=== PATIENT | male | born 1980 | race Hispanic/Latino ===

== ENCOUNTER 2020-03-01 08:19 | Emergency (ER) | payer SELFPAY ==
[2020-03-01] MEDS ORDERED: KETOROLAC 30 MG/ML INJ ONE (08:44)
--- NOTE | 2020-03-01 08:50 | ER ---
Nurse's Notes [facility] Name: Edwin Cisneros Age: 39 yrs Sex: Male : 1980 Arrival Date: 03/01/2020 Time: 08:21 Bed 5 Private MD: Diagnosis: Sciatica, left side Presentation: 03/01 08:33 Chief complaint: Patient states: low back pain since 0200 today, slipped on wet floor iw yesterday but did not hit ground. Coronavirus screen: Proceed with normal triage. Patient denies a cough. Patient denies shortness of breath or difficulty breathing. Patient denies measured and/or subjective temperature greater than 100.4F prior to today's visit. Patient denies travel on a cruise ship or to a country the [facility] currently lists as an affected area. Patient denies contact with known and/or suspected case of COVID-19. Ebola Screen: Patient negative for fever greater than or equal to 101.5 degrees Fahrenheit, and additional compatible Ebola Virus Disease symptoms Patient denies exposure to infectious person. Patient denies travel to an Ebola-affected area in the 21 days before illness onset. No symptoms or risks identified at this time. Initial Sepsis Screen: Does the patient meet any 2 criteria? No. Patient's initial sepsis screen is negative. Does the patient have a suspected source of infection? No. Patient's initial sepsis screen is negative. Risk Assessment: Do you want to hurt yourself or someone else? Patient reports no desire to harm self or others. Onset of symptoms was March 01, 2020. 08:33 Acuity: WILVER 4 iw 08:33 Method Of Arrival: Ambulatory iw Historical: - Allergies: 08:35 No Known Allergies; iw - Home Meds: 08:35 None [Active]; iw - PMHx: 08:35 None; iw - PSHx: 08:35 None; iw - Immunization history:: Adult Immunizations. - Social history:: Smoking status: Patient reports the use of cigarette tobacco products, denies chronic smoking, but will smoke occasionally. Screenin:14 Abuse screen: Denies threats or abuse. Denies injuries from another. Nutritional ph screening: No deficits noted. Tuberculosis screening: Fall Risk None identified. Assessment: 09:00 General: Appears in no apparent distress. comfortable, well groomed, Behavior is calm, ph cooperative, appropriate for age. Pain: Complains of pain in left low back Pain radiates to left leg. Neuro: Level of Consciousness is awake, alert, obeys commands, Oriented to person, place, time, situation. Cardiovascular: Capillary refill < 3 seconds in bilateral fingers Patient's skin is warm and dry. Respiratory: No deficits noted. Musculoskeletal: Circulation, motion, and sensation intact. Range of motion: intact in all extremities. Vital Signs: 08:33 BP 146 / 96; Pulse 82; Resp 16; Temp 97.8; Pulse Ox 99% on R/A; Weight 108.86 kg; iw Height 5 ft. 7 in. (170.18 cm); Pain 8/10; 09:15 BP 137 / 86; Pulse 71; Resp 18; Temp 98.0; Pulse Ox 99% on R/A; ph 08:33 Body Mass Index 37.59 (108.86 kg, 170.18 cm) iw ED Course: 08:21 Patient arrived in ED. as 08:25 Padma Da Silva FNP-C is [facility]. kb 08:25 Nirmal Van MD is Attending Physician. kb 08:33 Cyndee Ballard, XENIA is Primary Nurse. iw 08:34 Triage completed. iw 08:35 Arm band placed on. iw 08:44 Urine collected: clean catch specimen, clear. dh3 09:14 Patient has correct armband on for positive identification. Bed in low position. Call ph light in reach. Side rails up X 1. 09:14 No provider procedures requiring assistance completed. Patient did not have IV access ph during this emergency room visit. Administered Medications: 08:40 Drug: TORadol 30 mg Route: IM; Site: left deltoid; iw Outcome: 08:49 Discharge ordered by . kb 09:14 Discharged to home ambulatory. ph 09:14 Condition: good 09:14 Condition: good 09:14 Discharge instructions given to patient, Instructed on discharge instructions, follow up and referral plans. no drinking with medication, Demonstrated understanding of instructions, follow-up care, medications, Prescriptions given X 2. 09:15 Patient left the ED. ph Signatures: Padma Da Silva FNP-C FNP-Melba Steen as Cyndee Ballard RN RN Olga Ladd RN RN Candace Carney dh3
--- NOTE | 2020-03-01 08:50 | EDPHYS ---
Physician Documentation [facility] Name: Edwin Cisneros Age: 39 yrs Sex: Male : 1980 Arrival Date: 03/01/2020 Time: 08:21 Bed 5 Private MD: ED Physician Nirmal Van HPI: 03/01 08:32 This 39 yrs old Male presents to ER via Unassigned with complaints of Low Back kb Pain. 08:32 The patient presents with pain that is acute, with no known mechanism of injury, and kb tenderness. The symptoms are located in the left low back. The pain radiates to the left leg. The problem was sustained without known cause. Onset: The symptoms/episode began/occurred this morning, at 02:00. Modifying factors: The patient symptoms are alleviated by nothing, the patient symptoms are aggravated by any movement. Associated signs and symptoms: Pertinent positives: none. Severity of symptoms: At their worst the symptoms were moderate, in the emergency department the symptoms are unchanged. The patient has not experienced similar symptoms in the past. The patient has not recently seen a physician. Pt reports left low back pain that radiates down left leg intermittently. States pain started at 0200 when he woke up. Denies injury or trauma. States he did slip getting out of the shower on Friday, but didn't fall. Denies incontinence, retention, fever. Ambulates with steady gait. No vertebral tenderness, no CVA tenderness. Historical: - Allergies: 08:35 No Known Allergies; iw - Home Meds: 08:35 None [Active]; iw - PMHx: 08:35 None; iw - PSHx: 08:35 None; iw - Immunization history:: Adult Immunizations. - Social history:: Smoking status: Patient reports the use of cigarette tobacco products, denies chronic smoking, but will smoke occasionally. ROS: 08:31 Constitutional: Negative for fever, chills, and weight loss, Cardiovascular: Negative kb for chest pain, palpitations, and edema, Respiratory: Negative for shortness of breath, cough, wheezing, and pleuritic chest pain, Abdomen/GI: Negative for abdominal pain, nausea, vomiting, diarrhea, and constipation, : Negative for injury, bleeding, discharge, and swelling, MS/Extremity: Negative for injury and deformity, Skin: Negative for injury, rash, and discoloration, Neuro: Negative for headache, weakness, numbness, tingling, and seizure. 08:31 Back: Positive for pain at rest, pain with movement, radiated pain, of the left low back, Negative for injury or acute deformity, decreased range of motion. Exam: 08:31 Constitutional: This is a well developed, well nourished patient who is awake, alert, kb and in no acute distress. Head/Face: Normocephalic, atraumatic. Chest/axilla: Normal chest wall appearance and motion. Nontender with no deformity. No lesions are appreciated. Cardiovascular: Regular rate and rhythm with a normal S1 and S2. No gallops, murmurs, or rubs. Normal PMI, no JVD. No pulse deficits. Respiratory: Lungs have equal breath sounds bilaterally, clear to auscultation and percussion. No rales, rhonchi or wheezes noted. No increased work of breathing, no retractions or nasal flaring. Abdomen/GI: Soft, non-tender, with normal bowel sounds. No distension or tympany. No guarding or rebound. No evidence of tenderness throughout. Skin: Warm, dry with normal turgor. Normal color with no rashes, no lesions, and no evidence of cellulitis. MS/ Extremity: Pulses equal, no cyanosis. Neurovascular intact. Full, normal range of motion. Neuro: Awake and alert, GCS 15, oriented to person, place, time, and situation. Cranial nerves II-XII grossly intact. Motor strength 5/5 in all extremities. Sensory grossly intact. Cerebellar exam normal. Normal gait. 08:31 Back: pain, that is moderate, of the left low back, ROM is painful, normal spinal alignment noted, CVA tenderness, is absent. Vital Signs: 08:33 BP 146 / 96; Pulse 82; Resp 16; Temp 97.8; Pulse Ox 99% on R/A; Weight 108.86 kg; iw Height 5 ft. 7 in. (170.18 cm); Pain 8/10; 09:15 BP 137 / 86; Pulse 71; Resp 18; Temp 98.0; Pulse Ox 99% on R/A; ph 08:33 Body Mass Index 37.59 (108.86 kg, 170.18 cm) iw MDM: 08:25 Patient medically screened. kb 08:31 Data reviewed: vital signs, nurses notes. Data interpreted: Pulse oximetry: on room air kb is 100 %. Interpretation: normal. Counseling: I had a detailed discussion with the patient and/or guardian regarding: the historical points, exam findings, and any diagnostic results supporting the discharge/admit diagnosis, lab results, the need for outpatient follow up, a family practitioner, to return to the emergency department if symptoms worsen or persist or if there are any questions or concerns that arise at home. 03/01 08:47 Order name: Urine Dipstick--Ancillary (enter results) bd 03/01 08:30 Order name: Urine Dipstick-Ancillary (obtain specimen); Complete Time: 08:47 kb Administered Medications: 08:40 Drug: TORadol 30 mg Route: IM; Site: left deltoid; iw Disposition: 10:22 Co-signature as Attending Physician, Nirmal Van MD I agree with the assessment and kdr plan of care. Disposition: 03/01/20 08:49 Discharged to Home. Impression: Sciatica, left side. - Condition is Stable. - Discharge Instructions: Sciatica, [id number], Back Exercises, Qncg-[id number]. - Prescriptions for Cyclobenzaprine 10 mg Oral Tablet - take 1 tablet by ORAL route every 8 hours As needed; 21 tablet. Diclofenac Sodium 75 mg Oral Tablet, Delayed Release (E.C.) - take 1 tablet by ORAL route 2 times per day As needed; 30 tablet. - Work release form, Medication Reconciliation Form, Thank You Letter, Antibiotic Education, Prescription Opioid Use form. - Follow up: Emergency Department; When: As needed; Reason: Worsening of condition. Follow up: Private Physician; When: 2 - 3 days; Reason: Recheck today's complaints, Continuance of care, Re-evaluation by your physician. Signatures: Dispatcher [employer] EDND Padma Da Silva, SARAH LOPEZ-Nirmal Roa MD MD kdr Cyndee Ballard RN RN iw Olga Ladd RN RN ph Corrections: (The following items were deleted from the chart) 09:15 08:49 03/01/2020 08:49 Discharged to Home. Impression: Sciatica, left side. Condition ph is Stable. Discharge Instructions: Sciatica, [id number], Back Exercises, Ekre-yp-Hsok. Prescriptions for Cyclobenzaprine 10 mg Oral Tablet - take 1 tablet by ORAL route every 8 hours As needed; 21 tablet, Diclofenac Sodium 75 mg Oral Tablet, Delayed Release (E.C.) - take 1 tablet by ORAL route 2 times per day As needed; 30 tablet. and Forms are Medication Reconciliation Form, Thank You Letter, Antibiotic Education, Prescription Opioid Use. Follow up: Emergency Department; When: As needed; Reason: Worsening of condition. Follow up: Private Physician; When: 2 - 3 days; Reason: Recheck today's complaints, Continuance of care, Re-evaluation by your physician. kb
[2020-03-01 09:18] LABS: Urine Blood 2+ (NEG); Urine Glucose NEGATIVE (NEG); Urine Protein 2+ (NEG); Urine Specific Gravity >1.030 (1.005-1.030); Urine pH 6.5 (5.0-7.0)
[2020-03-01 11:08] VITALS: O2SAT 99
[2020-03-01 11:09] VITALS: BP 137/86; TEMP 98
== END 2020-03-01 09:15 | disposition home or self-care (01) ==
LOC: ER 08:19
DX: M54.32 Sciatica, left side (principal); Z72.0 Tobacco use
CPT/HCPCS: 81003; 96372; 99283

== ENCOUNTER 2020-03-07 09:39 | Emergency (ER) | payer SELFPAY ==
--- NOTE | 2020-03-13 13:07 | EDPHYS ---
Physician Documentation [facility] Name: Edwin Cisneros Age: 39 yrs Sex: Male : 1980 Arrival Date: 03/07/2020 Time: 09:40 Bed 20 Private MD: ED Physician Andres Breen HPI: 03/07 10:04 This 39 yrs old Male presents to ER via Unassigned with complaints of Medical rn Clearance. 10:04 Reports seen on 03/01, has form that states ok to return to work after 03/06, but work rn requesting new sheet that states no restrictions, no active complaints, his back pain has resolved, doesn't have physician here. . Severity of symptoms: At their worst the symptoms were moderate in the emergency department the symptoms have resolved. The patient has not experienced similar symptoms in the past. The patient has been recently seen at the [facility]. - Family history:: not pertinent. - Hospitalizations: : No recent hospitalization is reported. ROS: 10:04 Constitutional: Negative for fever, chills, and weight loss, Cardiovascular: Negative rn for chest pain, palpitations, and edema, Respiratory: Negative for shortness of breath, cough, wheezing, and pleuritic chest pain, Abdomen/GI: Negative for abdominal pain, nausea, vomiting, diarrhea, and constipation, Back: Negative for injury and pain, MS/Extremity: Negative for injury and deformity, Skin: Negative for injury, rash, and discoloration, Neuro: Negative for headache, weakness, numbness, tingling, and seizure. Exam: 10:04 Constitutional: This is a well developed, well nourished patient who is awake, alert, rn and in no acute distress. Ambulatory to room without assistance. Back: Full range of motion. Bends down easily to touch toes Neuro: Awake and alert, GCS 15, oriented to person, place, time, and situation. Motor strength 5/5 in all extremities. Cerebellar exam normal. Normal gait. MDM: 09:42 Patient medically screened. rn 10:04 Differential Diagnosis back strain/resolved. Data reviewed: vital signs, nurses notes, rn old medical records, and as a result, I will discharge patient. Counseling: I had a detailed discussion with the patient and/or guardian regarding: the historical points, exam findings, and any diagnostic results supporting the discharge/admit diagnosis, the need for outpatient follow up, to return to the emergency department if symptoms worsen or persist or if there are any questions or concerns that arise at home. ED course: Spoke with his boss, boss now states does not need new form, current form will suffice, pt medically screened. . Administered Medications: No medications were administered Disposition: 03/07/20 10:07 Discharged to Home as Medical Screen. Impression: Strain of muscle, fascia and tendon of lower back. - Condition is Stable. - Discharge Instructions: Back Pain, Adult, Muscle Strain. - Medication Reconciliation Form, Thank You Letter, Antibiotic Education, Prescription Opioid Use form. - Follow up: Private Physician; When: As needed; Reason: Recheck today's complaints, Re-evaluation by your physician. - Problem is new. - Symptoms are resolved. Signatures: Andres Breen MD MD rn Barber, Rebecca, RN RN rb1 Corrections: (The following items were deleted from the chart) 10:09 10:07 03/07/2020 10:07 Discharged to Home as Medical Screen. Impression: Strain of rb1 muscle, fascia and tendon of lower back. Condition is Stable. Forms are Medication Reconciliation Form, Thank You Letter, Antibiotic Education, Prescription Opioid Use. Follow up: Private Physician; When: As needed; Reason: Recheck today's complaints, Re-evaluation by your physician. Problem is new. Symptoms are resolved. rn
--- NOTE | 2020-03-13 13:07 | ER ---
Nurse's Notes [facility] Name: Edwin Cisneros Age: 39 yrs Sex: Male : 1980 Arrival Date: 03/07/2020 Time: 09:40 Bed 20 Private MD: Diagnosis: Strain of muscle, fascia and tendon of lower back - Family history:: not pertinent. - Hospitalizations: : No recent hospitalization is reported. ED Course: 03/07 09:40 Patient arrived in ED. ag5 09:42 Andres Breen MD is Attending Physician. rn 10:04 Virginia Andersen, XENIA is Primary Nurse. rb1 Administered Medications: No medications were administered Outcome: 10:07 Discharge ordered by . rn 10:08 Medical screen evaluation completed per provider. Patient declined treatment. rb1 10:09 Patient left the ED. rb1 Signatures: Andres Breen MD MD rn Barber, Rebecca, RN RN rb1 Kamari Davenport ag5
== END 2020-03-07 10:09 | disposition home or self-care (01) ==
LOC: ER 09:39
DX: Z00.00 Encounter for general adult medical examination without abnormal findings (principal)

== ENCOUNTER 2021-01-16 07:00 | Emergency (ER) | payer SELFPAY ==
[2021-01-16] MEDS ORDERED: PANTOPRAZOLE 40 MG INJ ONE (10:38)
[2021-01-16 10:39] LABS: Absolute Lymphocytes (CBC) 1.7 K/uL (0.7-4.9); Basophils % 0.7 % (0-1.3); Hematocrit 41.5 % (39.6-49.0); Lymphocytes % 25.4 % (15.3-44.8); MPV 9.2 fL (7.6-11.3); RBC Red Blood Cell Count 4.82 M/uL (4.33-5.43)
--- NOTE | 2021-01-16 10:52 | RAD REPORT ---
EXAM DESCRIPTION: CT - Abdomen Pelvis W Contrast - 01/16/2021 10:33 am CLINICAL HISTORY: Abdominal pain COMPARISON: none. TECHNIQUE: Computed axial tomography of the abdomen pelvis was obtained. 100 cc Isovue-300 was admin istered intravenously. Oral contrast was not requested which limits evaluation of bowel. All CT scans are performed using dose optimization technique as appropriate and may include automated exposure control or mA/KV adjustment according to patient size. FINDINGS: Fatty liver Spleen, pancreas, adrenal and kidneys appear unremarkable. There is no evidence of diverticulitis. Appendectomy Small right inguinal hernia contains fat IMPRESSION: No acute abnormality is displayed.
[2021-01-16 10:54] LABS: ALT/SGPT 35 U/L (12-78); AST/SGOT 22 U/L (15-37); Albumin 3.9 g/dL (3.4-5.0); Alkaline Phosphatase 62 U/L (45-117); BUN Blood Urea Nitrogen 23 mg/dL (7-18); Bicarbonate 29 mmol/L (21-32); Bilirubin Direct 0.1 mg/dL (0-0.2); Bilirubin Total 0.6 mg/dL (0.2-1.0); Glucose Level 91 mg/dL (74-106); Lipase 117 U/L (73-393); Potassium 3.9 mmol/L (3.5-5.1); Protein, Total 7.5 g/dL (6.4-8.2); Sodium Level 142 mmol/L (136-145)
--- NOTE | 2021-01-16 11:00 | ER ---
Nurse's Notes [facility] Name: Edwin Cisneros Age: 40 yrs Sex: Male : 1980 Arrival Date: 01/16/2021 Time: 07:02 Bed 14 Private MD: Diagnosis: Upper abdominal pain, unspecified Presentation: 01/16 07:20 Chief complaint: Patient states: he is having abdominal pain which started last night bb but has been dealing with this for a couple of months now is taking pantoprazole. Coronavirus screen: At this time, the client does not indicate any symptoms associated with coronavirus-19. Ebola Screen: No symptoms or risks identified at this time. Initial Sepsis Screen: Does the patient meet any 2 criteria? No. Patient's initial sepsis screen is negative. Does the patient have a suspected source of infection? No. Patient's initial sepsis screen is negative. Risk Assessment: Do you want to hurt yourself or someone else? Patient reports no desire to harm self or others. Onset of symptoms was January 15, 2021. 07:20 Method Of Arrival: Ambulatory bb 07:20 Acuity: WILVER 3 bb Triage Assessment: 07:23 General: Appears in no apparent distress. Behavior is calm, cooperative. Pain: bb Complains of pain in abdomen Pain currently is 8 out of 10 on a pain scale. 07:23 GI: Reports upper abdominal pain, Patient currently denies diarrhea, vomiting. bb Historical: - Allergies: 07:23 No Known Allergies; bb - Home Meds: 07:23 pantoprazole 40 mg oral TbEC 1 tab once daily [Active]; bb - PMHx: 07:23 gastritis; bb - PSHx: 07:23 Appendectomy; bb - Immunization history:: Adult Immunizations up to date. - Social history:: Smoking status: Patient denies any tobacco usage or history of. Patient uses alcohol, occasionally. Patient uses street drugs, marijuana. Screenin:21 Abuse screen: Denies threats or abuse. Nutritional screening: No deficits noted. ll1 Tuberculosis screening: No symptoms or risk factors identified. Fall Risk None identified. IV access (20 points). Total Caro Fall Scale indicates No Risk (0-24 pts). Assessment: 09:50 General: Appears in no apparent distress. Behavior is calm, cooperative, appropriate ll1 for age. Pain: Complains of pain in abdomen. Neuro: No deficits noted. Cardiovascular: No deficits noted. GI: Abdomen is round Bowel sounds present X 4 quads. Abd is soft and non tender X 4 quads. Reports upper abdominal pain, indigestion, nausea. Vital Signs: 07:20 BP 123 / 103; Pulse 63; Resp 18 S; Temp 98; Pulse Ox 99% on R/A; Weight 114.76 kg (R); bb Height 5 ft. 7 in. (170.18 cm) (R); Pain 8/10; 11:23 BP 123 / 76; Pulse 73; Resp 17; Pulse Ox 99% ; ll1 07:20 Body Mass Index 39.62 (114.76 kg, 170.18 cm) bb ED Course: 07:02 Patient arrived in ED. es 07:22 Triage completed. bb 07:23 Arm band placed on Patient placed in waiting room, Patient notified of wait time. bb 09:54 Padma Da Silva FNP-C is PHCP. kb 09:54 Andres Breen MD is Attending Physician. kb 09:55 Carmen Merritt, XENIA is Primary Nurse. ll1 10:00 Bed in low position. Call light in reach. Side rails up X 1. Cardiac monitoring not ll1 applicable on this patient. 10:00 Inserted saline lock: 20 gauge in right antecubital area, using aseptic technique. ll1 Blood collected. 10:32 CT Abd/Pelvis - IV Contrast Only In Process Unspecified. EDMS 11:20 IV discontinued, intact, bleeding controlled, No redness/swelling at site. Pressure ll1 dressing applied. 11:22 No provider procedures requiring assistance completed. ll1 Administered Medications: 10:28 Drug: ProTONIX 40 mg Route: IVP; Site: right antecubital; ll1 11:25 Follow up: Response: No adverse reaction ll1 11:09 Drug: GI Cocktail without - (Maalox Suspension 30 ml, Lidocaine Liquid 2 % 15 ll1 ml) Route: PO; 11:25 Follow up: Response: No adverse reaction ll1 Outcome: 10:59 Discharge ordered by . kb 11:22 Discharged to home ambulatory. ll1 11:22 Condition: stable 11:22 Discharge instructions given to patient, Instructed on discharge instructions, follow up and referral plans. Demonstrated understanding of instructions, follow-up care. 11:24 Patient left the ED. ll1 Signatures: Dispatcher [employer] Padma Stockton, LIC JESSICA-Gill Marin Brenda RN RN Carmen Damon RN RN ll1
--- NOTE | 2021-01-16 11:00 | EDPHYS ---
Physician Documentation [facility] Name: Edwin Cisneros Age: 40 yrs Sex: Male : 1980 Arrival Date: 01/16/2021 Time: 07:02 Bed 14 Private MD: ED Physician Andres Breen HPI: 01/16 10:57 This 40 yrs old Male presents to ER via Ambulatory with complaints of kb Abdominal Pain. 10:57 The patient presents with abdominal pain in the epigastric area. Onset: The kb symptoms/episode began/occurred 3 month(s) ago. The symptoms do not radiate. Associated signs and symptoms: none. The symptoms are described as intermittent. Modifying factors: The symptoms are alleviated by nothing, the symptoms are aggravated by nothing. Severity of pain: At its worst the pain was moderate in the emergency department the pain is unchanged. The patient has experienced similar episodes in the past. The patient has been recently seen by a physician:. Pt reports he has had upper abd pain and bloating most days for the last few months. States he saw his PCP (Karlie) a couple of weeks ago and was given a prescription for protonix which has helped, but the pain woke him up in the middle of the night last night prompting him to come in today.. Historical: - Allergies: 07:23 No Known Allergies; bb - Home Meds: 07:23 pantoprazole 40 mg oral TbEC 1 tab once daily [Active]; bb - PMHx: 07:23 gastritis; bb - PSHx: 07:23 Appendectomy; bb - Immunization history:: Adult Immunizations up to date. - Social history:: Smoking status: Patient denies any tobacco usage or history of. Patient uses alcohol, occasionally. Patient uses street drugs, marijuana. ROS: 10:57 Constitutional: Negative for fever, chills, and weight loss, Cardiovascular: Negative kb for chest pain, palpitations, and edema, Respiratory: Negative for shortness of breath, cough, wheezing, and pleuritic chest pain, MS/Extremity: Negative for injury and deformity, Skin: Negative for injury, rash, and discoloration, Neuro: Negative for headache, weakness, numbness, tingling, and seizure. 10:57 Abdomen/GI: Positive for abdominal pain, Negative for nausea, vomiting, and diarrhea. Exam: 10:57 Constitutional: This is a well developed, well nourished patient who is awake, alert, kb and in no acute distress. Head/Face: Normocephalic, atraumatic. Cardiovascular: Regular rate and rhythm with a normal S1 and S2. No gallops, murmurs, or rubs. No pulse deficits. Respiratory: Respirations even and unlabored. No increased work of breathing, no retractions or nasal flaring. Abdomen/GI: Soft, non-tender. No distention Skin: Warm, dry with normal turgor. Normal color. MS/ Extremity: Pulses equal, no cyanosis. Neurovascular intact. Full, normal range of motion. Neuro: Awake and alert, GCS 15, oriented to person, place, time, and situation. Moves all extremities. Normal gait. Vital Signs: 07:20 BP 123 / 103; Pulse 63; Resp 18 S; Temp 98; Pulse Ox 99% on R/A; Weight 114.76 kg (R); bb Height 5 ft. 7 in. (170.18 cm) (R); Pain 8/10; 11:23 BP 123 / 76; Pulse 73; Resp 17; Pulse Ox 99% ; ll1 07:20 Body Mass Index 39.62 (114.76 kg, 170.18 cm) bb MDM: 09:54 Patient medically screened. kb 10:56 Data reviewed: vital signs, nurses notes. Data interpreted: Pulse oximetry: on room air kb is 99 %. Interpretation: normal. Counseling: I had a detailed discussion with the patient and/or guardian regarding: the historical points, exam findings, and any diagnostic results supporting the discharge/admit diagnosis, lab results, radiology results, the need for outpatient follow up, a sales and merchandising representative, to return to the emergency department if symptoms worsen or persist or if there are any questions or concerns that arise at home. 01/16 10:01 Order name: Basic Metabolic Panel kb 01/16 10:01 Order name: CBC with Diff; Complete Time: 10:46 kb 01/16 10:01 Order name: Hepatic Function kb 01/16 10:01 Order name: Lipase; Complete Time: 10:56 kb 01/16 10:02 Order name: Basic Metabolic Panel; Complete Time: 10:56 EDMS 01/16 10:02 Order name: Liver (Hepatic) Function; Complete Time: 10:56 EDMS 01/16 10:01 Order name: IV Saline Lock; Complete Time: 10:23 kb 01/16 10:01 Order name: Labs collected and sent; Complete Time: 10:23 kb 01/16 10:01 Order name: CT Abd/Pelvis - IV Contrast Only; Complete Time: 10:56 kb Administered Medications: 10:28 Drug: ProTONIX 40 mg Route: IVP; Site: right antecubital; ll1 11:25 Follow up: Response: No adverse reaction ll1 11:09 Drug: GI Cocktail without - (Maalox Suspension 30 ml, Lidocaine Liquid 2 % 15 ll1 ml) Route: PO; 11:25 Follow up: Response: No adverse reaction ll1 Disposition: 15:11 Co-signature as Attending Physician, Andres Breen MD. rn Disposition: 01/16/21 10:59 Discharged to Home. Impression: Upper abdominal pain, unspecified. - Condition is Stable. - Discharge Instructions: Abdominal Pain, Adult, [id number]. - Medication Reconciliation Form, Thank You Letter, Antibiotic Education, Prescription Opioid Use, Work release form form. - Follow up: Emergency Department; When: As needed; Reason: Worsening of condition. Follow up: Private Physician; When: 2 - 3 days; Reason: Recheck today's complaints, Continuance of care, Re-evaluation by your physician. Signatures: Dispatcher [employer] [facility] Padma Da Silva, ENDOSCOPY REGISTERED NURSE-C ENDOSCOPY REGISTERED NURSE-CkAntonietta Phipps, RN Andres Martinez MD MD rn Lewis, Lynsay, RN RN ll1 Corrections: (The following items were deleted from the chart) 11:24 10:59 01/16/2021 10:59 Discharged to Home. Impression: Upper abdominal pain, ll1 unspecified. Condition is Stable. Forms are Medication Reconciliation Form, Thank You Letter, Antibiotic Education, Prescription Opioid Use. Follow up: Emergency Department; When: As needed; Reason: Worsening of condition. Follow up: Private Physician; When: 2 - 3 days; Reason: Recheck today's complaints, Continuance of care, Re-evaluation by your physician. kb
[2021-01-16] MEDS ORDERED: MAGNES/ALUMIN/SIMET 30ML UCUP ONE (11:20)
[2021-01-16] MEDS ORDERED: LIDOCAINE VISCOUS 2% SOLN 15 ML UDC ONE (11:20)
== END 2021-01-16 11:24 | disposition home or self-care (01) ==
LOC: ER 07:00
DX: R10.13 Epigastric pain (principal); K29.70 Gastritis, unspecified, without bleeding
CPT/HCPCS: 36415; 74177; 80048; 80076; 82565; 83690; 85025; 96374; 99284; C9113; Q9967

== ENCOUNTER 2021-09-24 09:28 | Emergency (ER) | payer SELFPAY ==
--- NOTE | 2021-09-24 10:50 | RAD REPORT ---
EXAM DESCRIPTION: CT - Head Brain Wo Cont - 09/24/2021 10:23 am CLINICAL HISTORY: Headache COMPARISON: None. TECHNIQUE: Computed axial tomography of the head was obtained. IV contrast was not requested. All CT scans are performed using dose optimization technique as appropriate and may include automated exposure control or mA/KV adjustment according to patient size. FINDINGS: An intracranial bleed is not seen . The ventricles are normal in caliber. No extra-axial fluid collection is noted. Fluid within the sinuses/ mastoids is not seen. IMPRESSION: No acute intracranial abnormality is seen. If patient's symptoms persist MRI of the bra in would be recommended.
[2021-09-24 10:52] LABS: Absolute Lymphocytes (CBC) 1.9 K/uL (0.7-4.9); Basophils % 0.6 % (0-1.3); Hematocrit 44.7 % (39.6-49.0); Lymphocytes % 28.2 % (15.3-44.8); MPV 8.6 fL (7.6-11.3); RBC Red Blood Cell Count 5.25 M/uL (4.33-5.43)
[2021-09-24] MEDS ORDERED: METOCLOPRAMIDE 10 MG/2mL INJ ONE (10:58)
[2021-09-24] MEDS ORDERED: KETOROLAC 30 MG/ML INJ ONE (10:58)
[2021-09-24] MEDS ORDERED: DIPHENHYDRAMINE 50 MG/ML VIAL ONE (10:58)
[2021-09-24] MEDS ORDERED: NA CHLORIDE 0.9% 500 ML ONE (10:58)
[2021-09-24 11:10] LABS: BUN Blood Urea Nitrogen 18 mg/dL (7-18); Bicarbonate 28 mmol/L (21-32); Glucose Level 96 mg/dL (74-106); Sodium Level 140 mmol/L (136-145)
[2021-09-24 11:25] LABS: SARS-COV-2 RT PCR NEGATIVE (NEGATIVE)
--- NOTE | 2021-09-24 12:50 | RAD REPORT ---
EXAM DESCRIPTION: CT - Head angio - 09/24/2021 12:38 pm CLINICAL HISTORY: HEADACHE Headache, drowsiness COMPARISON: Head Brain Wo Cont dated 09/24/2021 TECHNIQUE: CT angiography of the head was performed with MIPs. All CT scans are performed using dose optimization technique as appropriate and may include automated exposure control or mA/KV adjustment according to patient size. FINDINGS: No evidence of aneurysm is detected. No flow-limiting stenosis or vascular malformation id entified. Antegrade flow is seen in the vertebral arteries. The vertebral arteries are codominant. The visualized dural venous sinuses are patent. IMPRESSION: No significant flow abnormality is detected.
--- NOTE | 2021-09-24 13:24 | ER ---
Nurse's Notes [facility] Name: Edwin Cisneros Age: 41 yrs Sex: Male : 1980 Arrival Date: 09/24/2021 Time: 09:30 Bed 4 Private MD: Diagnosis: Headache Presentation: 09/24 09:33 Chief complaint: Patient states: headache that began x 2 days that began worse ss yesterday. Coronavirus screen: Client denies travel out of the [place] in the last 14 days. Ebola Screen: Patient denies exposure to infectious person. Patient denies travel to an Ebola-affected area in the 21 days before illness onset. Initial Sepsis Screen: Does the patient meet any 2 criteria? No. Patient's initial sepsis screen is negative. Does the patient have a suspected source of infection? No. Patient's initial sepsis screen is negative. Risk Assessment: Do you want to hurt yourself or someone else? Patient reports no desire to harm self or others. Onset of symptoms was September 22, 2021. 09:33 Method Of Arrival: Ambulatory ss 09:33 Acuity: WILVER 3 ss Historical: - Allergies: 09:35 No Known Allergies; ss - Home Meds: 09:35 None [Active]; ss - PMHx: 09:35 gastritis; ss - PSHx: 09:35 None; ss - Immunization history:: Client reports receiving the 2nd dose of the Covid vaccine. - Social history:: Smoking status: Patient denies any tobacco usage or history of. Screenin:12 Abuse screen: Denies threats or abuse. Nutritional screening: No deficits noted. vg1 Tuberculosis screening: No symptoms or risk factors identified. Fall Risk No fall in past 12 months (0 pts). No secondary diagnosis (0 pts). IV access (20 points). Ambulatory Aid- None/Bed Rest/Nurse Assist (0 pts). Gait- Normal/Bed Rest/Wheelchair (0 pts) Mental Status- Oriented to own ability (0 pts). Total Caro Fall Scale indicates No Risk (0-24 pts). Assessment: 10:11 General: Appears in no apparent distress. uncomfortable, Behavior is calm, cooperative. vg1 Pain: Complains of pain in head Pain currently is 7 out of 10 on a pain scale. Pain began 2-3 days ago. Also complains of nausea. Neuro: Level of Consciousness is awake, alert, obeys commands, Oriented to person, place, time, situation, Reports blurred vision dizziness, headache. Cardiovascular: Patient's skin is warm and dry. Respiratory: Airway is patent Respiratory effort is even, unlabored. GI: Reports nausea. : No signs and/or symptoms were reported regarding the genitourinary system. EENT: No signs and/or symptoms were reported regarding the EENT system. Derm: Skin is intact, is healthy with good turgor. Musculoskeletal: Circulation, motion, and sensation intact. 11:06 Reassessment: Patient appears in no apparent distress at this time. No changes from vg1 previously documented assessment. Patient and/or family updated on plan of care and expected duration. Pain level reassessed. Patient is alert, oriented x 3, equal unlabored respirations, skin warm/dry/pink. 12:22 Reassessment: Patient appears in no apparent distress at this time. Patient and/or vg1 family updated on plan of care and expected duration. Pain level reassessed. Patient is alert, oriented x 3, equal unlabored respirations, skin warm/dry/pink. Rated headache 5/10 Patient states feeling better. 13:30 Reassessment: Patient appears in no apparent distress at this time. Patient and/or vg1 family updated on plan of care and expected duration. Pain level reassessed. Patient is alert, oriented x 3, equal unlabored respirations, skin warm/dry/pink. Patient states feeling better. Vital Signs: 09:33 BP 143 / 105; Pulse 66; Resp 18; Temp 97.2(TE); Pulse Ox 100% on R/A; Weight 115.67 kg; Height 5 ft. 7 in. (170.18 cm); Pain 7/10; 10:12 BP 140 / 95; Pulse 76; Resp 15; Pulse Ox 100% ; vg1 11:07 BP 136 / 82; Pulse 60; Resp 16; Pulse Ox 100% ; vg1 13:30 BP 134 / 72; Pulse 64; Resp 16; Pulse Ox 100% ; vg1 09:33 Body Mass Index 39.94 (115.67 kg, 170.18 cm) ED Course: 09:30 Patient arrived in ED. ds1 09:35 Triage completed. ss 09:35 Arm band placed on right wrist. ss 09:46 Mickail, Marek, PA is PHCP. [facility] 09:46 Andres Breen MD is Attending Physician. m 10:05 Laura Colón, RN is Primary Nurse. vg1 10:12 Patient has correct armband on for positive identification. Bed in low position. Call vg1 light in reach. Side rails up X 1. 10:12 No provider procedures requiring assistance completed. vg1 10:23 CT Head Brain wo Cont In Process Unspecified. EDMS 10:43 Warm blanket given. Pulse ox on. NIBP on. mh5 10:43 Strep Sent. 5 10:43 COVID swab sent to lab. Flu and/or RSV swab sent to lab. Strep swab sent to lab. 5 10:47 Initial lab(s) drawn, by pr, sent to lab. Inserted saline lock: 20 gauge in right vg1 antecubital area, using aseptic technique. Blood collected. 12:38 CT Head Angio In Process Unspecified. EDMS 13:22 Luís Brooks MD is Referral Physician. m 13:30 IV discontinued, intact, bleeding controlled, No redness/swelling at site. vg1 Administered Medications: 11:00 Drug: diphenhydrAMINE 12.5 mg Route: IVP; Site: right antecubital; vg1 12:23 Follow up: Response: Marked relief of symptoms vg1 11:03 Drug: Ketorolac 30 mg Route: IVP; Site: right antecubital; vg1 12:23 Follow up: Response: Marked relief of symptoms vg1 11:05 Drug: NS 0.9% 500 ml Route: IV; Rate: bolus; Site: right antecubital; vg1 12:23 Follow up: IV Status: Completed infusion; IV Intake: 500ml vg1 11:05 Drug: Reglan (metoCLOPramide) 20 mg Route: IVP; Site: right antecubital; vg1 12:23 Follow up: Response: Marked relief of symptoms vg1 Intake: 12:23 IV: 500ml; Total: 500ml. vg1 Outcome: 13:24 Discharge ordered by . m 13:30 Discharged to home ambulatory. vg1 13:30 Condition: stable 13:30 Discharge instructions given to patient, Instructed on discharge instructions, follow up and referral plans. Demonstrated understanding of instructions, follow-up care. 13:31 Patient left the ED. vg1 Signatures: Dispatcher [employer] EDMS Marek Watkins PA PA jmm Sanford, Demi ds1 Barb Parmar RN RN Jenna Nettles [facility] Laura Colón RN RN vg1 Corrections: (The following items were deleted from the chart) 10:43 10:43 Influenza Screen (A \T\ B)+BA.LAB.BRZ drawn and sent. [address] 10:43 10:43 SARS-COV-2 RT PCR+MOL.LAB.BRZ drawn and sent. [address]
--- NOTE | 2021-09-24 13:24 | EDPHYS ---
Physician Documentation [facility] Name: Edwin Cisneros Age: 41 yrs Sex: Male : 1980 Arrival Date: 09/24/2021 Time: 09:30 Bed 4 Private MD: ED Physician Andres Breen HPI: 09/24 10:12 This 41 yrs old Male presents to ER via Ambulatory with complaints of Headache jmm - Pressure. 10:12 The patient complains of pain to the forehead and right taoism. Onset: The jmm symptoms/episode began/occurred gradually, 2 day(s) ago. Associated signs and symptoms: Pertinent positives: fever. Headache History: Denies prior headaches. This is a 41-year-old male with no chronic medical conditions presents emerged part with complaints of frontal and right temporal headache beginning approximately 2 days ago. Patient states that he had a fever with some sore throat beginning yesterday. Denies neck stiffness, vomiting, diarrhea. Denies shortness of breath or abdominal pain.. Historical: - Allergies: 09:35 No Known Allergies; ss - Home Meds: 09:35 None [Active]; ss - PMHx: 09:35 gastritis; ss - PSHx: 09:35 None; ss - Immunization history:: Client reports receiving the 2nd dose of the Covid vaccine. - Social history:: Smoking status: Patient denies any tobacco usage or history of. ROS: 10:12 Cardiovascular: Negative for chest pain, palpitations, and edema, Respiratory: Negative jmm for shortness of breath, cough, wheezing, and pleuritic chest pain. 10:12 Neck: Negative for injury, pain, and swelling. 10:12 Constitutional: Positive for body aches, fever. 10:12 Neuro: Positive for headache. 10:12 All other systems are negative. Exam: 10:12 Constitutional: This is a well developed, well nourished patient who is awake, alert, jmm and in no acute distress. Head/Face: atraumatic. Eyes: EOMI, no conjunctival erythema appreciated 10:12 Neck: Trachea midline, Supple Chest/axilla: Normal chest wall appearance and motion. Cardiovascular: Regular rate and rhythm. No edema appreciated Respiratory: Normal respirations, no respiratory distress appreciated Abdomen/GI: Non distended, soft Back: Normal ROM Skin: General appearance color normal MS/ Extremity: Moves all extremities, no obvious deformities appreciated, no edema noted to the lower extremities Neuro: Awake and alert, normal gait Psych: Behavior is normal, Mood is normal, Patient is cooperative and pleasant 10:12 ENT: Posterior pharynx: erythema, that is moderate. Vital Signs: 09:33 BP 143 / 105; Pulse 66; Resp 18; Temp 97.2(TE); Pulse Ox 100% on R/A; Weight 115.67 kg; ss Height 5 ft. 7 in. (170.18 cm); Pain 7/10; 10:12 BP 140 / 95; Pulse 76; Resp 15; Pulse Ox 100% ; vg1 11:07 BP 136 / 82; Pulse 60; Resp 16; Pulse Ox 100% ; vg1 13:30 BP 134 / 72; Pulse 64; Resp 16; Pulse Ox 100% ; vg1 09:33 Body Mass Index 39.94 (115.67 kg, 170.18 cm) ss MDM: 10:[address] [facility] 13:21 Data reviewed: vital signs, nurses notes. Counseling: I had a detailed discussion with adalberto the patient and/or guardian regarding: the historical points, exam findings, and any diagnostic results supporting the discharge/admit diagnosis, lab results, radiology results, the need for outpatient follow up, to return to the emergency department if symptoms worsen or persist or if there are any questions or concerns that arise at home. ED course: Headache is relieved in the ED. I do not suspect subarachnoid hemorrhage or meningitis. Patient advised follow-up neurology for further evaluation otherwise given strict return precautions. Patient understood agrees plan of care.. 09/24 10:14 Order name: CBC with Diff; Complete Time: 10:53 [facility] 09/24 10:14 Order name: BMP; Complete Time: 11:25 [facility] 09/24 10:14 Order name: [place] Screen Profile; Complete Time: 11:58 [facility] 09/24 10:14 Order name: Strep; Complete Time: 11:25 [facility] 09/24 10:14 Order name: CT Head Brain wo Cont; Complete Time: 10:53 [facility] 09/24 10:43 Order name: COVID-19/FLU A+B; Complete Time: 11:25 [facility] 09/24 11:06 Order name: Throat Culture [facility] 09/24 11:59 Order name: CT Head Angio; Complete Time: 12:56 [facility] 09/24 10:14 Order name: Saline Lock; Complete Time: 10:47 [facility] Administered Medications: 11:00 Drug: diphenhydrAMINE 12.5 mg Route: IVP; Site: right antecubital; vg1 12:23 Follow up: Response: Marked relief of symptoms vg1 11:03 Drug: Ketorolac 30 mg Route: IVP; Site: right antecubital; vg1 12:23 Follow up: Response: Marked relief of symptoms vg1 11:05 Drug: NS 0.9% 500 ml Route: IV; Rate: bolus; Site: right antecubital; vg1 12:23 Follow up: IV Status: Completed infusion; IV Intake: 500ml vg1 11:05 Drug: Reglan (metoCLOPramide) 20 mg Route: IVP; Site: right antecubital; vg1 12:23 Follow up: Response: Marked relief of symptoms vg1 Disposition: 15:28 Co-signature as Attending Physician, Andres Breen MD I agree with the assessment and rn plan of care. Attestation: The patient's history, exam findings, diagnostics, and a summary of any interventions or procedures was reviewed in detail with Marek LEVY. Disposition Summary: 09/24/21 13:24 Discharge Ordered Location: Home [facility] Condition: Stable [facility] Diagnosis - Headache [facility] Followup: [facility] - With: Luís Brooks MD - When: 2 - 3 days - Reason: Recheck today's complaints, Continuance of care, Re-evaluation by your physician Discharge Instructions: - Discharge Summary Sheet [facility] - Migraine Headache [facility] Forms: - Medication Reconciliation Form [facility] - Thank You Letter [facility] - Antibiotic Education [facility] - Prescription Opioid Use [facility] Signatures: Dispatcher [employer] EDMS Marek Watkins PA PA [facility] Andres Breen MD MD rn Smirch, Shelby, RN RN ss Garcia, Victoria, RN RN vg1 Corrections: (The following items were deleted from the chart) 10:43 10:14 SARS-COV-2 RT PCR+MOL.LAB.BRZ ordered. EDMS EDMS 10:43 10:14 Influenza Screen (A \T\ B)+BA.LAB.BRZ ordered. EDMS EDMS
[2021-09-24 13:38] VITALS: TEMP 97.2; O2SAT 100
[2021-09-24 13:42] VITALS: BP 134/72
== END 2021-09-24 13:31 | disposition home or self-care (01) ==
LOC: ER 09:28
DX: R51.9 Headache, unspecified (principal); Z20.822 Contact with and (suspected) exposure to COVID-19
CPT/HCPCS: 0240U; 36415; 70450; 70496; 80048; 85025; 86308; 87070; 87081; 96361; 96374; 96375; 99284; J1200; J2765; J7040; Q9967